=== PATIENT | male | born 1940 | race Caucasian/White ===

== ENCOUNTER 2023-11-27 10:54 | Emergency (ER) | payer MEDICARE, SELFPAY ==
[2023-11-27] VITALS (9 sets, daily range): BP systolic 120–130; BP diastolic 61–67; PULSE 74; RESP 16; TEMP 36.2; O2SAT 96–99
--- NOTE | ~2023-11-27 | XR_ITS ---
EXAMINATION: XR ribs RT 2V w CXR 2V DATE: 11/27/2023 12:00 INDICATION: Right chest pain. Fall. TECHNIQUE: Frontal and lateral views of the chest and 2 views on 3 radiographs of the right ribs were obtained. COMPARISON: None. FINDINGS: CHEST TWO VIEWS: Calcified pulmonary nodules and calcified right hilar lymph nodes are consistent wit h old granulomatous disease. No pleural effusion or pneumothorax. The heart size is normal. There are changes of posterior fusion procedure in lumbar spine. RIGHT RIBS: There is no rib fracture. IMPRESSION: 1. No rib fracture. Reviewed, dictated and finalized at location A. IMPRESSION: 1. No rib fracture.
--- NOTE | 2023-11-27 12:34 | ED.GENADULT ---
HPI - General Adult General Chief complaint: Fall Stated complaint: pain to right chest, flank, and back Time Seen by Provider: 11/27/23 11:31 History of Present Illness HPI narrative: Patient is an 83-year-old male who presents ER with right-sided rib pain. Mid axillary line. Had a fall earlier this week landing on his side. Caregiver states he has had pain since then and it was worse today. He has had occasional cough no one make sure does not pneumonia. No fevers or chills. Patient is also develop new dental pain at tooth number 27. No facial swelling. Patient cannot provide history due to dementia. Pain does improve with tramadol. Related Data Allergies Allergy/AdvReac Type Severity Reaction Status Date / Time Penicillins Allergy Unknown Verified 11/27/23 13:14 Review of Systems Review of Systems: ROS unobtainable: Yes unobtainable due to mental status PMFSH Past Medical History Medical History (Updated 11/27/23 @ 13:26 by Kal Parkinson MD) Dementia Social History Social History (Updated 11/27/23 @ 13:26 by Kal Parkinson MD) Social History: Exam Narrative: GENERAL: Well-appearing, well-nourished, and in no acute distress. HEAD: Normocephalic, atraumatic. ENT: Mucous membranes moist. tender at the base of tooth number 27 but no facial swelling or fluctuant abscess. CHEST: Clear to auscultation. No respiratory distress. mild tenderness right lateral chest wall midaxillary line HEART: Regular rate and rhythm. Normal peripheral pulses. ABDOMEN: Soft, nontender, nondistended. EXTREMITIES: Normal range of motion. No edema. SKIN: Warm, dry, no rash. NEURO: Alert and oriented x1. Course Course Emergency Course: Antibiotics for dental pain. Discussed imaging results with POA. Discharge home. Vital Signs Vital signs: Vital Signs Temperature 97.1 F L 11/27/23 10:54 Pulse Rate 74 11/27/23 10:54 Respiratory Rate 16 11/27/23 10:54 Blood Pressure 129/61 11/27/23 10:54 Pulse Oximetry 98 11/27/23 10:54 Temperature 97.1 F L 11/27/23 10:54 Pulse Rate 74 11/27/23 10:54 Respiratory Rate 16 11/27/23 10:54 Blood Pressure 129/61 11/27/23 10:54 Pulse Oximetry 98 11/27/23 10:54 Medical Decision Making Vital Signs Vital Signs: Vital Signs Temperature 97.1 F L 11/27/23 10:54 Pulse Rate 74 11/27/23 10:54 Respiratory Rate 16 11/27/23 10:54 Blood Pressure 129/61 11/27/23 10:54 Pulse Oximetry 98 11/27/23 10:54 Temperature 97.1 F L 11/27/23 10:54 Pulse Rate 74 11/27/23 10:54 Respiratory Rate 16 11/27/23 10:54 Blood Pressure 129/61 11/27/23 10:54 Pulse Oximetry 98 11/27/23 10:54 Discharge Plan Discharge Clinical Impression: Chest wall pain, Pain, dental Patient Disposition: Home, Self-Care Condition: Stable Instructions: Antibiotic Form, Toothache (ED) Additional Instructions: It is felt you have musculoskeletal pain from your fall. You do seem to have new tenderness related to possible dental infection and will be started on antibiotics. Return the ER if you have fever over 100.4? F, you cannot breathe, you cannot swallow, or you have additional concerns. Prescriptions: New clindamycin HCl 150 mg capsule 450 mg PO TID 10 Days Qty: 90 0RF Follow-up/Referrals: UNKNOWN,DOCTOR [Primary Care Provider] - 1 Week
== END 2023-11-27 13:45 | disposition home or self-care (01) ==
PROVIDERS: Emergency Provider Emergency Medicine
DX: R07.89 Other chest pain (principal); K08.89 Other specified disorders of teeth and supporting structures; F03.90 Unspecified dementia, unspecified severity, without behavioral disturbance, psychotic disturbance, mood disturbance, and anxiety
CPT/HCPCS: 71046; 71100; 99283

== ENCOUNTER 2024-05-25 20:07 | Emergency (ER) | payer MEDICARE, SELFPAY ==
--- NOTE | ~2024-05-25 | CT_ITS ---
EXAMINATION: CT cervical spine wo con DATE: 05/26/2024 00:37 INDICATION: Neck pain. Fall. TECHNIQUE: Computed tomography (CT) of the cervical spine was performed without intravenous contrast. Automated exposure control and iterative reconstruction technique were employed. The dose-length pro duct was 412.36 mGy-cm. COMPARISON: None FINDINGS: There is hypolordosis of cervical spine. There is mild chronic anterior wedging of T1 verte bral body. There is severely decreased disc height at C3-C4, moderately decreased disc height at C4-C 5, and severely decreased disc height at C5-C6 and C6-C7. The following disc levels are specifically discussed: C2-C3: There is severe right uncovertebral joint osteoarthritis. There is severe right and moderate l eft facet joint osteoarthritis. There is mild right neural foraminal stenosis. There is mild central canal stenosis. C3-C4: There is severe bilateral uncovertebral joint osteoarthritis. There is severe right and mild l eft facet joint osteoarthritis. There is mild bilateral neural foraminal stenosis. There is mild cent ral canal stenosis. C4-C5: There is mild right and moderate left uncovertebral joint osteoarthritis. There is severe righ t and mild left facet joint osteoarthritis. There is mild bilateral neural foraminal stenosis. There is mild central canal stenosis. C5-C6: There is severe bilateral uncovertebral joint osteoarthritis. There is severe bilateral facet joint osteoarthritis. There is moderate right and mild left neural foraminal stenosis. There is mild central canal stenosis. C6-C7: There is severe bilateral uncovertebral joint osteoarthritis. There is severe right and modera te left facet joint osteoarthritis. There is mild bilateral neural foraminal stenosis. There is mild central canal stenosis. C7-T1: There is no uncovertebral joint osteoarthritis. There is moderate bilateral facet joint osteoa rthritis. There is no neural foraminal stenosis. There is no central canal stenosis. IMPRESSION: 1. No fracture. 2. Severe cervical spondylosis. Reviewed, dictated and finalized at location A. ND GRADE TEACHER
--- NOTE | ~2024-05-25 | CT_ITS ---
EXAMINATION: CT brain wo con DATE: 05/26/2024 00:37 INDICATION: Head injury. TECHNIQUE: Computed tomography (CT) of the head was performed without intravenous contrast. The mA wa s adjusted according to patient size. Iterative reconstruction technique was employed. The dose-lengt h product was 681.00 mGy-cm. COMPARISON: None FINDINGS: There are scattered areas of low attenuation in the cerebral white matter. There are old la cunar infarcts in the bilateral basal ganglia. There is no intracranial hemorrhage, acute infarction, or abnormal intracranial mass lesion. The ventricles are normal in size. There are likely changes of ocular lens replacement surgeries. There is mild mucosal thickening in the paranasal sinuses. The ma stoid air cells are normal. IMPRESSION: 1. Old lacunar infarcts in the bilateral basal ganglia. 2. Extensive nonspecific cerebral white matter disease, which likely represents chronic small vessel ischemic disease. Reviewed, dictated and finalized at location A. [employer] PRODUCTION TEAM MEMBER
[2024-05-25 20:11] VITALS: BP 152/67; PULSE 65; RESP 15; TEMP 35.9; O2SAT 100
[2024-05-25 22:35] VITALS: BP 120/74; O2SAT 95
[2024-05-25 22:36] VITALS: O2SAT 98
[2024-05-25 22:38] VITALS: BP 120/74; PULSE 66; RESP 16; O2SAT 100
--- NOTE | 2024-05-26 00:54 | ED_ITS ---
HPI - General Adult General Chief complaint: Fall Stated complaint: fall Time Seen by Provider: 05/25/24 22:49 History of Present Illness HPI narrative: patient is a 83-year-old gentleman presents emergency department with chief complaint of fall. Patient had a fall out of bed at home patient landed on his front side of his body the patient rib caregiver reports that she heard a large thud the patient reports that he has no complaint right now is not having any pain anywhere Related Data Allergies Allergy/AdvReac Type Severity Reaction Status Date / Time clopidogrel [From Plavix] Allergy Unknown Verified 05/25/24 22:36 lisinopril Allergy Unknown Verified 05/25/24 22:36 Penicillins Allergy Unknown Verified 05/25/24 22:36 Sulfa (Sulfonamide Allergy Unknown Verified 05/25/24 22:36 Antibiotics) Review of Systems Review of Systems: A 10 system review of systems was completed on the patient and is negative exc ept for what is stated in the HPI. Nursing and ancillary documentation was reviewed. PMFSH Past Medical History Medical History Dementia Social History Social History Social History: Exam Narrative: GENERAL: Well-appearing, well-nourished, and in no acute distress. HEAD: Normocephalic, atraumatic. EYES: PERRLA and EOMI. ENT: Nares clear, no rhinorrhea or epistaxis. Mucous membranes moist. NECK: Supple. CHEST: Clear to auscultation. No respiratory distress. HEART: Regular rate and rhythm. No murmur heard. Normal peripheral pulses. ABDOMEN: Soft, nontender, nondistended, normal active bowel sounds. EXTREMITIES: Normal range of motion. No edema. SKIN: Warm, dry, no rash. NEURO: No focal deficits. Alert and oriented x2. PSYCH: Normal mood and affect. Course Vital Signs Vital signs: Vital Signs Temperature 35.9 C L 05/25/24 20:11 Pulse Rate 65 05/25/24 20:11 Respiratory Rate 15 05/25/24 20:11 Blood Pressure 152/67 H 05/25/24 20:11 Pulse Oximetry 100 05/25/24 20:11 Oxygen Delivery Room Air 05/25/24 20:11 Temperature 35.9 C L 05/25/24 20:11 Pulse Rate 66 05/25/24 22:38 Respiratory Rate 16 05/25/24 22:38 Blood Pressure 120/74 05/25/24 22:38 Pulse Oximetry 100 05/25/24 22:38 Oxygen Delivery Room Air 05/25/24 20:11 Medical Decision Making MDM Narrative Medical decision making narrative: differential diagnosis includes head injury, cervical spine fracture, CT head CT C-spine were obtained on the patient both were negative patient is currently at his baseline neurological status. Vital Signs Vital Signs: Vital Signs Temperature 35.9 C L 05/25/24 20:11 Pulse Rate 65 05/25/24 20:11 Respiratory Rate 15 05/25/24 20:11 Blood Pressure 152/67 H 05/25/24 20:11 Pulse Oximetry 100 05/25/24 20:11 Oxygen Delivery Room Air 05/25/24 20:11 Temperature 35.9 C L 05/25/24 20:11 Pulse Rate 66 05/25/24 22:38 Respiratory Rate 16 05/25/24 22:38 Blood Pressure 120/74 05/25/24 22:38 Pulse Oximetry 100 05/25/24 22:38 Oxygen Delivery Room Air 05/25/24 20:11 Discharge Plan Discharge Clinical Impression: Fall from ground level, Head injury Patient Disposition: Home, Self-Care Condition: Stable Instructions: Antibiotic Form, Fall Prevention for Older Adults (ED), Head Injury (ED), Fall Prevention (ED) Prescriptions: No Action clindamycin HCl 150 mg capsule 450 mg PO TID 10 Days Qty: 90 0RF Follow-up/Referrals: UNKNOWN,DOCTOR [Primary Care Provider] - Time of Disposition: 01:24
== END 2024-05-26 01:46 | disposition home or self-care (01) ==
PROVIDERS: Emergency Provider Emergency Medicine
DX: S09.90XA Unspecified injury of head, initial encounter (principal); F03.90 Unspecified dementia, unspecified severity, without behavioral disturbance, psychotic disturbance, mood disturbance, and anxiety; W06.XXXA Fall from bed, initial encounter
CPT/HCPCS: 70450; 72125; 99284

== ENCOUNTER 2025-06-18 22:59 | Emergency (ER) | payer MEDICARE, SELFPAY ==
--- NOTE | ~2025-06-18 | CT_ITS ---
EXAMINATION: CT abdomen pelvis w con DATE: 06/19/2025 00:38 INDICATION: Abdominal pain. Nausea and vomiting. TECHNIQUE: Computed tomography (CT) of the abdomen and pelvis was performed with 100 mL Omnipaque 350 intravenous contrast. Automated exposure control and iterative reconstruction technique were employed. The dose-length product was 710.04 mGy-cm. COMPARISON: None. FINDINGS: The visualized portions of the lung bases demonstrate mild atelectasis and chronic lung disease. Calcified pulmonary nodules and calcified hilar lymph nodes are consistent with old granulomatous disease. The heart size is normal. There are coronary artery calcifications. No pericardial effusion. There are calcifications of the aortic valve. The liver, gallbladder, spleen, pancreas, and adrenal glands are normal. There are cysts in the kidneys measuring up to 3.2 cm on the left. There are no dilated loops of bowel. The appendix is normal. There are no pathologically enlarged lymph nodes. There is no free intraperitoneal fluid. There is severe lumbar spondylosis. There are changes of anterior and posterior fusion procedures at L4-L5. IMPRESSION: 1. No etiology for the patient's symptoms. Reviewed, dictated and finalized at location E. EQUIPMENT SERVICE TECHNICIAN
[2025-06-18 23:05] VITALS: BP 168/75; PULSE 79; RESP 21; TEMP 36.4; O2SAT 97
[2025-06-18 23:15] VITALS: BP 156/89; PULSE 80; RESP 20; O2SAT 100
[2025-06-18 23:30] VITALS: BP 137/97; PULSE 80; RESP 19; O2SAT 96
[2025-06-18 23:49] LABS: Hematocrit 41.1 % (42.0-52.0); Hemoglobin 12.8 g/dL (14.0-18.0); Immature Granulocyte Percent A 0.3 % (0-0.5); Lymphocytes Absolute Auto 1.59 K/mm3 (0.9-3.2); Mean Corpuscular HGB Conc 31.1 g/dl (32-36); Mean Corpuscular Hemoglobin 26.3 pg (26-34); Mean Corpuscular Volume 84.4 fl (80-100); Nucleated Red Blood Cells Absolute Auto 0.000 K/mm3 (0.0-0.012); Nucleated Red Blood Cells Perc 0.0 % (0.0-0.2); Platelet Count Result 367 k/mm3 (150-375); Red Blood Count 4.87 M/mm3 (4.6-6.20); White Blood Count 10.1 K/mm3 (4.5-10.0)
--- OUTSIDE RECORDS SUMMARY | 2025-06-18 23:56 | XMS_ITS ---
Care Plan - [facility] Created on: June 18, 2025 CARLIN GREENFIELD : 1940 Sex: Male Author Organization [facility] Address [address] [place] [address] Phone Care Team Providers Care Nutrition Program Instructor Name Role Phone CARMEN FIGUEROA, CORY Unavailable [phone] MARCELO FIGUEROA, ASTON Primary Care Provider Unavail able
--- OUTSIDE RECORDS SUMMARY | 2025-06-18 23:56 | XMS_ITS | Clinical Summary ---
Author Organization [facility] Address [address] [place] [address] Phone Care Team Providers Care Insurance Customer Service Specialist Name Role Phone CARMEN FIGUEROA, CORY Unavailable [phone] ASTON ROBERTSON MD Primary Care Provider Unavail able Reason for Visit and Chief Complaint The Chief Complaint is: LEFT SIDE PAIN FOR ABOUT 4 MONTHS. 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 Jimenez ROBERTSON MD Active Last Documented On 0 2:28PM ; [facility] Benign Prostatic Hypertrophy 03/25/2009 ASTON ROBERTSON MD Active Last Documented On 0 2:28PM ; [facility] Chronic Diffuse Ischemic Heart Disease 03/25/2009 ASTON ROBERTSON MD Active Last Documented On 0 2:28PM ; [facility] Diabetes Mellitus Type 2 03/25/2009 ASTON TAVAREZ MD Active Last Documented On 0 2:28PM ; [facility] Hyperlipidemia 03/25/2009 ASTON ROBERTSON MD Act kamar Last Documented On 0 2:28PM ; [facility] Essential Hypertension Benign 03/25/2009 JODEE ROBERTSON MD Active Last Documented On 0 2:28PM ; [facility] Osteoarthritis 03/25/2009 ASTON ROBERTSON MD Act kamar Last Documented On 0 2:28PM ; [facility] Plan of Treatment Will call with x-ray results. May apply heat/ice several times daily to affected area. Gentle stretching discussed. Monitor blood sugars closely while taking medrol dose pack. - Last Documented On 04/27/2021 7:46PM ; [facility] Assessments Includes: Assessments from this encounter No Assessments Recorded Medical Equipment - Implanted Devices Includes: Current Devices No Medical Equipment Recorded Medications Includes: Medications discussed during this encounter and other current Medications New / Renewed during this visit STACIE DUNCAN on 04/27/2021 Medrol 4 MG Oral Tablet Therapy Pack Provider: STACIE Medina 6 day supply: 1 each, 0 refills Diagnosis: Sprain of ribs, initial encounter use as directed Pharmacy: [address], [phone] - Last Documented On 04/27/2021 11:45AM By Stacie ANTONIO ; [facility] Current Medications (continue as prescribed) fentaNYL 12 MCG/HR TD PT72 03/25/2011 Provider: Diagnosis: Last Documented On 1 1:55PM By TRAVIS PACHECO LPN ; [facility] Effient 10 MG OR TABS 03/25/2011 Provider: Diagnosis: Last Documented On 1 1:54PM By TRAVIS PACHECO LPN ; [facility] NexIUM 40 MG OR CPDR 03/25/2011 Provider: Diagnosis: Last Documented On 1 1:53PM By TRAVIS PACHECO LPN ; [facility] glipiZIDE 5 MG OR TABS 03/25/2011 Provider: Diagnosis: Last Documented On 1 1:53PM By TRAVIS PACHECO LPN ; [facility] metFORMIN HCl 1000 MG TABS 03/25/2011 Provider: Diagnosis: Last Documented On 1 1:52PM By TRAVIS PACHECO LPN ; [facility] HYDROcodone-Acetaminophen 5-325 MG OR TABS 03/17/2011 Provider: ASTON ROBERTSON MD Diagnosis: 1-2 PO, Q4HR, PRN, Last Documented On 03/17/2011 1:23PM By ASTON ROBERTSON MD ; [facility] Zetia 10 MG OR TABS 12/18/2010 Provider: Diagnosis: Last Documented On 1 2:27PM By TRAVIS PACHECO LPN ; [facility] Crestor 20 MG OR TABS 05/14/2010 Provider: Diagnosis: Last Documented On 0 10:47AM By TRAVIS PACHECO LPN ; [facility] metFORMIN HCl 1000 MG TABS 05/14/2010 Provider: Jimenez ROBERTSON MD Diagnosis: HYPERLIPIDEMIA N EC/NOS Last Documented On 05/14/2010 11:14AM By ASTON ROBERTSON MD ; [facility] Lexapro 10 MG OR TABS 12/30/2009 Provider: JODEE ROBERTSON MD Diagnosis: Last Documented On 12/30/2009 4:14PM By ASTON ROBERTSON MD ; [facility] Lopressor 100 MG OR TABS 12/22/2009 Provider: SIABEL ROBERTSON MD Diagnosis: 2BID - TAKE TWO TABLETS BY MOUTH TWICE DAILY Last Documented On 12/22/2009 9:49AM By ASTON ROBERTSON MD ; [facility] amLODIPine Besylate 10 MG OR TABS 11/11/2009 Provide r: Diagnosis: Last Documented On 0 2:26PM By TRAVIS PACHECO LPN ; [facility] Metoprolol Tartrate 100 MG OR TABS 11/11/2009 Provid er: Diagnosis: Last Documented On 0 2:27PM By TRAVIS PACHECO LPN ; [facility] Flonase 50 MCG/ACT NA SUSP 11/07/2009 Provider: Jimenez ROBERTSON MD Diagnosis: 2 sprays each nostril QD Last Documented On 11/07/2009 10:47AM By ASTON ROBERTSON MD ; [facility] Accu-Chek Compact STRP 10/28/2009 Provider: RAMSEY ROBERTSON MD Diagnosis: Last Documented On 10/28/2009 9:23PM By ASTON ROBERTSON MD ; [facility] Lancets 28G MISC 10/28/2009 Provider: ASTON TAVAREZ MD Diagnosis: ACCU CHECK COMPACT PLUS Last Documented On 10/28/2009 9:24PM By ASTON ROBERTSON MD ; [facility] Detrol LA 4 MG OR CP24 06/17/2009 Provider: ROSALVA ROBERTSON MD Diagnosis: Last Documented On 06/17/2009 1:51PM By ASTON ROBERTSON MD ; [facility] Pantoprazole Sodium 40 MG OR TBEC 05/26/2009 Provide r: ASTON ROBERTSON MD Diagnosis: Last Documented On 05/26/2009 1:53PM By ASTON ROBERTSON MD ; [facility] Doxazosin Mesylate 8 MG OR TABS 05/26/2009 Provider: Diagnosis: Last Documented On 9 1:36PM By TRAVIS PACHECO LPN ; [facility] Medications Administered Includes: Administered Medications from this encounter No Administered Medications Recorded Vital Signs Includes: Vital Signs from this encounter Vital Name 04/27/2021 11:17A Pulse Rate-Sitting (bpm) 57 Temp-Oral (F) 97.9 Weight (lb) 236.2 Oxygen Saturation (%) 98 Last Documented: On 04/27/2021 11:17A M ; [facility] Results Includes: Results discussed during this encounter No Results Recorded For Specified Dates History of Present Illness Includes: History of Present Illness from this encounter HPI CARLIN GREENFIELD is a 80 year old male. - Allergy list reviewed - Medication reconciliation performed - Feeling fine - Not feeling tired - Not feeling poorly (malaise) - No fever - No chills - No headache - No chest pain or discomfort - No palpitations - No dyspnea - Not expressed as feeling short of breath - No cough - No nausea - No vomiting - No abdominal pain - No diarrhea - No increase in urinary frequency - No dysuria - No dizziness - No lightheadedness - No skin symptoms Carlin is a 80-year-old male patient that presented to the walk-in clinic for left rib pain that has been present for four months. He reports that he initially fell on a lawn ornament and landed on his left side. He reports that he never was evaluated for this. He saw the chiropractor several times for an adjustment. He reports pain started to posterior left rib area, but now has wrapped around and he is having pain to left anterior ribs. He has been taking OTC Tylenol/Ibuprofen for pain. He reports that he goes to [place] for primary care. Social History No Social History Recorded - Smoking Status Unknown Medical History Includes: Medical History addressed during this encounter Description Last Updated Taking OTC medications 04/27/2021 Last Documented On 1 7:46PM ; [facility] Taking OTC pain medication / fever. Marquez denton Motrin 04/27/2021 Last Documented On 1 7:46PM ; [facility] Taking OTC pain medication /fever. Using Tylenol 04/27/2021 Last Documented On 1 7:46PM ; [facility] Family History Includes: Family History addressed during this encounter No Family History Recorded Review of Systems Includes: Review of Systems from this encounter Systemic: No systemic symptoms. Head: No head symptoms. Cardiovascular: No cardiovascular symptoms. Pulmonary: No pulmonary symptoms. Gastrointestinal: No gastrointestinal symptoms. Musculoskeletal: Bone pain in the rib. Neurological: No neurological symptoms. Skin: No skin symptoms. Mental Status Includes: Mental Status from this encounter No Mental Status Recorded Functional Status Includes: Functional Status from this encounter No Functional Status Recorded Physical Exam Includes: Physical Exam from this encounter Allergies Includes: Active Allergies Substance Type Reaction Onset Date Resolved Date Statu s Sulfa Antibiotics Allergy 03/25/2009 A ctive Last Documented On 1 11:17AM ; [facility] Plavix Allergy 03/25/2009 Active Last Documented On 1 11:17AM ; [facility] Penicillins Allergy 03/25/2009 Active Last Documented On 1 11:17AM ; [facility] Encounters Encounter Provider Location Date Check-In Time Check-Out Time Diagnosis WALK IN PATIENT - ESTABLISHED PT STACIE ANTONIO-C [facility] 04/27/20 21 11:23AM 11:39AM Insurance Includes: Active Insurance Policies Plan Name Member ID Group # Subscriber Relationship Effect kamar Dates 1 - [employer]AGE [id number] CARLIN Ruelas Clinical Notes Includes: Clinical Notes from this encounter No Clinical Notes Recorded
--- OUTSIDE RECORDS SUMMARY | 2025-06-18 23:56 | XMS_ITS | Clinical Summary ---
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 Name Role Phone CARMEN FIGUEROA, CORY Unavailable [phone] ASTON ROBERTSON MD Primary Care Provider Unavail able Reason for Visit and Chief Complaint X-RAY Problems Includes: Problems addressed during this encounter and other active Problems All Visits Onset Date Resolved Date Provider Condition S tatus Depression 05/26/2009 SYLVIA AMYA PA-C Act kamar Last Documented On 1 3:45PM ; [facility] 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 Jimenez ROBERTSON MD Active Last Documented On 0 2:28PM ; [facility] Benign Prostatic Hypertrophy 03/25/2009 ASTON ROBERTSON MD Active Last Documented On 0 2:28PM ; [facility] Chronic Diffuse Ischemic Heart Disease 03/25/2009 ASTON ROBERTSON MD Active Last Documented On 0 2:28PM ; [facility] Diabetes Mellitus Type 2 03/25/2009 ASTON TAVAREZ MD Active Last Documented On 0 2:28PM ; [facility] Hyperlipidemia 03/25/2009 ASTON ROBERTSON MD Act kamar Last Documented On 0 2:28PM ; [facility] Essential Hypertension Benign 03/25/2009 JODEE ROBERTSON MD Active Last Documented On 0 2:28PM ; [facility] Osteoarthritis 03/25/2009 ASTON ROBERTSON MD Act kamar Last Documented On 0 2:28PM ; [facility] Plan of Treatment No Plan of Treatment Recorded Assessments Includes: Assessments from this encounter No Assessments Recorded Medical Equipment - Implanted Devices Includes: Current Devices No Medical Equipment Recorded Medications Includes: Medications discussed during this encounter and other current Medications Current Medications (continue as prescribed) fentaNYL 12 MCG/HR TD PT72 03/25/2011 Provider: Diagnosis: Last Documented On 1 1:55PM By TRAVIS PACHECO LPN ; [facility] Effient 10 MG OR TABS 03/25/2011 Provider: Diagnosis: Last Documented On 1 1:54PM By TRAVIS PACHECO LPN ; [facility] NexIUM 40 MG OR CPDR 03/25/2011 Provider: Diagnosis: Last Documented On 1 1:53PM By TRAVIS PACHECO LPN ; [facility] glipiZIDE 5 MG OR TABS 03/25/2011 Provider: Diagnosis: Last Documented On 1 1:53PM By TRAVIS PACHECO LPN ; [facility] metFORMIN HCl 1000 MG TABS 03/25/2011 Provider: Diagnosis: Last Documented On 1 1:52PM By TRAVIS PACHECO LPN ; [facility] HYDROcodone-Acetaminophen 5-325 MG OR TABS 03/17/2011 Provider: ASTON ROBERTSON MD Diagnosis: 1-2 PO, Q4HR, PRN, Last Documented On 03/17/2011 1:23PM By ASTON ROBERTSON MD ; [facility] Zetia 10 MG OR TABS 12/18/2010 Provider: Diagnosis: Last Documented On 1 2:27PM By TRAVIS PACHECO LPN ; [facility] Crestor 20 MG OR TABS 05/14/2010 Provider: Diagnosis: Last Documented On 0 10:47AM By TRAVIS PACHECO LPN ; [facility] metFORMIN HCl 1000 MG TABS 05/14/2010 Provider: Jimenez ROBERTSON MD Diagnosis: HYPERLIPIDEMIA N EC/NOS Last Documented On 05/14/2010 11:14AM By ASTON ROBERTSON MD ; [facility] Lexapro 10 MG OR TABS 12/30/2009 Provider: JODEE ROBERTSON MD Diagnosis: Last Documented On 12/30/2009 4:14PM By ASTON ROBERTSON MD ; [facility] Lopressor 100 MG OR TABS 12/22/2009 Provider: ISABEL ROBERTSON MD Diagnosis: 2BID - TAKE TWO TABLETS BY MOUTH TWICE DAILY Last Documented On 12/22/2009 9:49AM By ASTON ROBERTSON MD ; [facility] amLODIPine Besylate 10 MG OR TABS 11/11/2009 Provide r: Diagnosis: Last Documented On 0 2:26PM By TRAVIS PACHECO LPN ; [facility] Metoprolol Tartrate 100 MG OR TABS 11/11/2009 Provid er: Diagnosis: Last Documented On 0 2:27PM By TRAVIS PACHECO LPN ; [facility] Flonase 50 MCG/ACT NA SUSP 11/07/2009 Provider: Jimenez ROBERTSON MD Diagnosis: 2 sprays each nostril QD Last Documented On 11/07/2009 10:47AM By ASTON ROBERTSON MD ; [facility] Accu-Chek Compact STRP 10/28/2009 Provider: RAMSEY ROBERTSON MD Diagnosis: Last Documented On 10/28/2009 9:23PM By ASTON ROBERTSON MD ; [facility] Lancets 28G MISC 10/28/2009 Provider: ASTON TAVAREZ MD Diagnosis: ACCU CHECK COMPACT PLUS Last Documented On 10/28/2009 9:24PM By ASTON ROBERTSON MD ; [facility] Detrol LA 4 MG OR CP24 06/17/2009 Provider: ROSALVA ROBERTSON MD Diagnosis: Last Documented On 06/17/2009 1:51PM By ASTON ROBERTSON MD ; [facility] Pantoprazole Sodium 40 MG OR TBEC 05/26/2009 Provide r: ASTON ROBERTSON MD Diagnosis: Last Documented On 05/26/2009 1:53PM By ASTON ROBERTSON MD ; [facility] Doxazosin Mesylate 8 MG OR TABS 05/26/2009 Provider: Diagnosis: Last Documented On 9 1:36PM By TRAVIS PACHECO LPN ; [facility] Medications Administered Includes: Administered Medications from this encounter No Administered Medications Recorded Results Includes: Results discussed during this encounter No Results Recorded For Specified Dates History of Present Illness Includes: History of Present Illness from this encounter No History of Present Illness Recorded Social History No Social History Recorded - Smoking Status Unknown Medical History Includes: Medical History addressed during this encounter No Medical History Recorded Family History Includes: Family History addressed during this encounter No Family History Recorded Review of Systems Includes: Review of Systems from this encounter No Review of Systems Recorded Mental Status Includes: Mental Status from this encounter No Mental Status Recorded Functional Status Includes: Functional Status from this encounter No Functional Status Recorded Physical Exam Includes: Physical Exam from this encounter No Physical Exam Recorded Allergies Includes: Active Allergies Substance Type Reaction Onset Date Resolved Date Statu s Sulfa Antibiotics Allergy 03/25/2009 A ctive Last Documented On 1 11:17AM ; [facility] Plavix Allergy 03/25/2009 Active Last Documented On 1 11:17AM ; [facility] Penicillins Allergy 03/25/2009 Active Last Documented On 1 11:17AM ; [facility] Encounters Encounter Provider Location Date Check-In Time Check-Out Time Diagnosis X-RAY [facility] 05/26/2022 3:12PM 11:59PM Insurance Includes: Active Insurance Policies Plan Name Member ID Group # Subscriber Relationship Effect kamar Dates 1 - [employer] [id number] CARLIN Ruelas Clinical Notes Includes: Clinical Notes from this encounter No Clinical Notes Recorded
--- OUTSIDE RECORDS SUMMARY | 2025-06-18 23:56 | XMS_ITS ---
Author Organization [facility] Address [address] [place] [address] Phone Care Team Providers Care Ball Points Inspector Name Role Phone CARMEN FIGUEROA, CORY Unavailable [phone] ASTON ROBERTSON MD Primary Care Provider Unavail able Problems Includes: Active, inactive, and resolved Problems All Visits Onset Date Resolved Date Provider Condition S tatus Depression 05/26/2009 SYLVIA MAYA PA-C Act akmar Last Documented On 1 3:45PM ; [facility] 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 Jimenez ROBERTSON MD Active Last Documented On 0 2:28PM ; [facility] Benign Prostatic Hypertrophy 03/25/2009 ASTON ROBERTSON MD Active Last Documented On 0 2:28PM ; [facility] Chronic Diffuse Ischemic Heart Disease 03/25/2009 ASTON ROBERTSON MD Active Last Documented On 0 2:28PM ; [facility] Diabetes Mellitus Type 2 03/25/2009 ASTON TAVAREZ MD Active Last Documented On 0 2:28PM ; [facility] Hyperlipidemia 03/25/2009 ASTON ROBERTSON MD Act kamar Last Documented On 0 2:28PM ; [facility] Essential Hypertension Benign 03/25/2009 JODEE ROBERTSON MD Active Last Documented On 0 2:28PM ; [facility] Osteoarthritis 03/25/2009 ASTON ROBERTSON MD Act kamar Last Documented On 0 2:28PM ; [facility] Plan of Treatment Findings Encounter Date f/u with carton catcher return is any sx arise GENERAL OFFICE VISIT with MESHA KRUEGER PA-C 03/25/2011 Last Documented On 1 10:45AM ; [facility] 1. Cleared for surgery 2. Pr e-op forms completed and faxed PREOP EXAM with ASTON ROBERTSON MD 02/17/2011 Last Documented On 1 3:14PM ; [facility] Discussed diet, limit carbs to 45-60 grams/meal TID check sugars fasting and 2 hours post prandial F/U 3 months with CMP, A1c GENERAL OFFICE VISIT with SYLVIA MAYA PA-C 12/18/2010 Last Documented On 1 3:45PM ; [facility] Ordered follow-up visit 6 mo nths Check Chem 12, HgbA1c, PSA Follow up with cardio as directed 3 MONTH CHECK with ASTON ROBERTSON MD 08/13/2010 Last Documented On 1 12:42PM ; [facility] Ordered return to the clinic if condition worsens or new symptoms arise 3 MONTH CHECK with ASTON ROBERTSON MD 08/13/2010 Last Documented On 1 12:42PM ; [facility] Start Metformin Check Chem 1 2, HgbA1c in 3 months Pt. to monitor BP and HR Pt. to call Dr. Arias, Cardio, this week to give an update on his condition 6 MONTH CHECK with ASTON ROBERTSON MD 05/14/2010 Last Documented On 0 1:11PM ; [facility] Continue current meds Pt. to call his carton catcher today or tomorrow re: CP He is to go to ER if CP worsens Offered to setup recheck of sleep study. Pt. states he will think about it and let us know. Considered starting Imdur but BP too low 6 MONTH CHECK with ASTON ROBERTSON MD 11/11/2009 Last Documented On 0 5:24PM ; [facility] Ordered follow-up visit 6 mo nths Check chem 12, lipids, HgbA1c GENERAL OFFICE VISIT with ASTON ROBERTSON MD 05/26/2009 Last Documented On 9 2:01PM ; [facility] PLAN [Use for s.o.a.p. 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 [facility] Last Documented On 2 10:31AM ; [facility] Assessments Includes: Assessments for all patient encounters Findings Encounter Date Type II diabetes mellitus [Patient Encounter] wi th SYLVIA Duarte ZULMA PA-C 04/27/2011 Last Documented On 1 10:18AM ; [facility] Pre-op clearence GENERAL OFFICE VISIT with SHAY OLVERA Felicia ZIPPRICH PA-C 03/25/2011 Last Documented On 1 10:45AM ; [facility] Benign essential hypertension GENERAL OF FICE VISIT with MESHA Felicia LIPRICH PA-C 03/25/2011 Last Documented On 1 10:45AM ; [facility] Chronic diffuse ischemic hea rt disease GENERAL OFFICE VISIT with MESHA Duarte ZIPPRICH PA-C 03/25/2011 Last Documented On 1 10:45AM ; [facility] Hyperlipidemia GENERAL OFFICE VISIT with NAGASTUART Ruano Felicia ZIPPRICH PA-C 03/25/2011 Last Documented On 1 10:45AM ; [facility] Osteoarthritis GENERAL OFFICE VISIT with RUPA Ruano Felicia ZIPPRICH PA-C 03/25/2011 Last Documented On 1 10:45AM ; [facility] Type II diabetes mellitus GENERAL OFFICE VISIT with MESHA D ZIPPRICH PA-C 03/25/2011 Last Documented On 1 10:45AM ; [facility] Pre-op clearence PREOP EXAM with ASTON ROBERTSON MD 02/17/2011 Last Documented On 1 3:14PM ; [facility] Benign essential hypertension PREOP EXAM with RAMSEY ROBERTSON MD 02/17/2011 Last Documented On 1 3:14PM ; [facility] Chronic diffuse ischemic heart disease PREOP EXA M with ASTON ROBERTSON MD 02/17/2011 Last Documented On 1 3:14PM ; [facility] Hyperlipidemia PREOP EXAM with ASTON Duarte 02/17/2011 Last Documented On 1 3:14PM ; [facility] Osteoarthritis PREOP EXAM with ASTON Duarte 02/17/2011 Last Documented On 1 3:14PM ; [facility] Type II diabetes mellitus PREOP EXAM with JODEE ROBERTSON MD 02/17/2011 Last Documented On 1 3:14PM ; [facility] Benign essential hypertension GENERAL OF FICE VISIT with SYLVIA FERRARAC 12/18/2010 Last Documented On 1 3:45PM ; [facility] Benign prostatic hypertrophy GENERAL OFF ICE VISIT with SYLVIA FERRARAC 12/18/2010 Last Documented On 1 3:45PM ; [facility] Chronic diffuse ischemic hea rt disease GENERAL OFFICE VISIT with SYLVIA STAFFORD-C 12/18/2010 Last Documented On 1 3:45PM ; [facility] Depression GENERAL OFFICE VISIT with VIDYA CARTER-C 12/18/2010 Last Documented On 1 3:45PM ; [facility] Hyperlipidemia GENERAL OFFICE VISIT with VIDYA CARTER-C 12/18/2010 Last Documented On 1 3:45PM ; [facility] Obstructive sleep apnea GENERAL OFFICE VISIT wit h SYLVIA STAFFORD-C 12/18/2010 Last Documented On 1 3:45PM ; [facility] Osteoarthritis GENERAL OFFICE VISIT with VIDYA CARTER-C 12/18/2010 Last Documented On 1 3:45PM ; [facility] Type II diabetes mellitus GENERAL OFFICE VISIT w michele STAFFORD-C 12/18/2010 Last Documented On 1 3:45PM ; [facility] Benign essential hypertension 3 MONTH CHECK with ASTON ROBERTSON MD 08/13/2010 Last Documented On 1 12:42PM ; [facility] Benign prostatic hypertrophy 3 MONTH CHECK with ASTON ROBERTSON MD 08/13/2010 Last Documented On 1 12:42PM ; [facility] Chronic diffuse ischemic heart disease 3 MONTH C HECK with ASTON ROBERTSON MD 08/13/2010 Last Documented On 1 12:42PM ; [facility] Hyperlipidemia 3 MONTH CHECK with ASTON Puente MD 08/13/2010 Last Documented On 1 12:42PM ; [facility] Obstructive sleep apnea 3 MONTH CHECK with ROSALVA ROBERTSON MD 08/13/2010 Last Documented On 1 12:42PM ; [facility] Osteoarthritis 3 MONTH CHECK with ASTON Puente MD 08/13/2010 Last Documented On 1 12:42PM ; [facility] Type II diabetes mellitus 3 MONTH CHECK with ISABEL ROBERTSON MD 08/13/2010 Last Documented On 1 12:42PM ; [facility] Benign essential hypertension 6 MONTH CHECK with ASTON ROBERTSON MD 05/14/2010 Last Documented On 0 1:11PM ; [facility] Benign prostatic hypertrophy 6 MONTH CHECK with ASTON ROBERTSON MD 05/14/2010 Last Documented On 0 1:11PM ; [facility] Chronic diffuse ischemic heart disease 6 MONTH C HECK with ASTON ROBERTSON MD 05/14/2010 Last Documented On 0 1:11PM ; [facility] Hyperlipidemia 6 MONTH CHECK with ASTON Puente MD 05/14/2010 Last Documented On 0 1:11PM ; [facility] Osteoarthritis 6 MONTH CHECK with ASTON Puente MD 05/14/2010 Last Documented On 0 1:11PM ; [facility] Type II diabetes mellitus 6 MONTH CHECK with ISABEL ROBERTSON MD 05/14/2010 Last Documented On 0 1:11PM ; [facility] Benign essential hypertension 6 MONTH CHECK with ASTON ROBERTSON MD 11/11/2009 Last Documented On 0 5:24PM ; [facility] Benign prostatic hypertrophy 6 MONTH CHECK with ASTON ROBERTSON MD 11/11/2009 Last Documented On 0 5:24PM ; [facility] Chest pain 6 MONTH CHECK with ASTON Puente MD 11/11/2009 Last Documented On 0 5:24PM ; [facility] Chronic diffuse ischemic heart disease 6 MONTH C HECK with ASTON ROBERTSON MD 11/11/2009 Last Documented On 0 5:24PM ; [facility] Hyperlipidemia 6 MONTH CHECK with ASTON Puente MD 11/11/2009 Last Documented On 0 5:24PM ; [facility] Obstructive sleep apnea 6 MONTH CHECK with ROSALVA ROBERTSON MD 11/11/2009 Last Documented On 0 5:24PM ; [facility] Osteoarthritis 6 MONTH CHECK with ASTON Puente MD 11/11/2009 Last Documented On 0 5:24PM ; [facility] Type II diabetes mellitus 6 MONTH CHECK with ISABEL ROBERTSON MD 11/11/2009 Last Documented On 0 5:24PM ; [facility] Benign essential hypertension GENERAL OFFICE VIS IT with ASTON ROBERTSON MD 05/26/2009 Last Documented On 9 2:01PM ; [facility] Chronic diffuse ischemic heart disease G ENERAL OFFICE VISIT with ASTON ROBERTSON MD 05/26/2009 Last Documented On 9 2:01PM ; [facility] GERD GENERAL OFFICE VISIT with JODEE ROBERTSON MD 05/26/2009 Last Documented On 9 2:01PM ; [facility] Hyperlipidemia GENERAL OFFICE VISIT with JODEE ROBERTSON MD 05/26/2009 Last Documented On 9 2:01PM ; [facility] Obstructive sleep apnea GENERAL OFFICE VISIT kasandra ROBERTSON MD 05/26/2009 Last Documented On 9 2:01PM ; [facility] Type II diabetes mellitus GENERAL OFFICE VISIT w michele ROBERTSON MD 05/26/2009 Last Documented On 9 2:01PM ; [facility] Medical Equipment - Implanted Devices Includes: Current and historical Devices No Medical Equipment Recorded Medications Includes: Current and historical Medications Current Medications (continue as prescribed) fentaNYL 12 MCG/HR TD PT72 03/25/2011 Provider: Diagnosis: Last Documented On 1 1:55PM By TRAVIS PACHECO LPN ; [facility] Effient 10 MG OR TABS 03/25/2011 Provider: Diagnosis: Last Documented On 1 1:54PM By TRAVIS PACHECO LPN ; [facility] NexIUM 40 MG OR CPDR 03/25/2011 Provider: Diagnosis: Last Documented On 1 1:53PM By TRAVIS PACHECO LPN ; [facility] glipiZIDE 5 MG OR TABS 03/25/2011 Provider: Diagnosis: Last Documented On 1 1:53PM By TRAVIS PACHECO LPN ; [facility] metFORMIN HCl 1000 MG TABS 03/25/2011 Provider: Diagnosis: Last Documented On 1 1:52PM By TRAVIS PACHECO LPN ; [facility] HYDROcodone-Acetaminophen 5-325 MG OR TABS 03/17/2011 Provider: ASTON ROBERTSON MD Diagnosis: 1-2 PO, Q4HR, PRN, Last Documented On 03/17/2011 1:23PM By ASTON ROBERTSON MD ; [facility] Zetia 10 MG OR TABS 12/18/2010 Provider: Diagnosis: Last Documented On 1 2:27PM By TRAVIS PACHECO LPN ; [facility] Crestor 20 MG OR TABS 05/14/2010 Provider: Diagnosis: Last Documented On 0 10:47AM By TRAVIS PACHECO LPN ; [facility] metFORMIN HCl 1000 MG TABS 05/14/2010 Provider: Jimenez ROBERTSON MD Diagnosis: HYPERLIPIDEMIA N EC/NOS Last Documented On 05/14/2010 11:14AM By ASTON ROBERTSON MD ; [facility] Lexapro 10 MG OR TABS 12/30/2009 Provider: JODEE ROBERTSON MD Diagnosis: Last Documented On 12/30/2009 4:14PM By ASTON ROBERTSON MD ; [facility] Lopressor 100 MG OR TABS 12/22/2009 Provider: ISABEL ROBERTSON MD Diagnosis: 2BID - TAKE TWO TABLETS BY MOUTH TWICE DAILY Last Documented On 12/22/2009 9:49AM By ASTON ROBERTSON MD ; [facility] amLODIPine Besylate 10 MG OR TABS 11/11/2009 Provide r: Diagnosis: Last Documented On 0 2:26PM By TRAVIS PACHECO LPN ; [facility] Metoprolol Tartrate 100 MG OR TABS 11/11/2009 Provid er: Diagnosis: Last Documented On 0 2:27PM By TRAVIS PACHECO LPN ; [facility] Flonase 50 MCG/ACT NA SUSP 11/07/2009 Provider: Jimenez ROBERTSON MD Diagnosis: 2 sprays each nostril QD Last Documented On 11/07/2009 10:47AM By ASTON ROBERTSON MD ; [facility] Accu-Chek Compact STRP 10/28/2009 Provider: RAMSEY ROBERTSON MD Diagnosis: Last Documented On 10/28/2009 9:23PM By ASTON ROBERTSON MD ; [facility] Lancets 28G MISC 10/28/2009 Provider: ASTON TAVAREZ MD Diagnosis: ACCU CHECK COMPACT PLUS Last Documented On 10/28/2009 9:24PM By ASTON ROBERTSON MD ; [facility] Detrol LA 4 MG OR CP24 06/17/2009 Provider: ROSALVA ROBERTSON MD Diagnosis: Last Documented On 06/17/2009 1:51PM By ASTON ROBERTSON MD ; [facility] Pantoprazole Sodium 40 MG OR TBEC 05/26/2009 Provide r: ASTON ROBERTOSN MD Diagnosis: Last Documented On 05/26/2009 1:53PM By ASTON ROBERTSON MD ; [facility] Doxazosin Mesylate 8 MG OR TABS 05/26/2009 Provider: Diagnosis: Last Documented On 9 1:36PM By TRAVIS PACHECO LPN ; [facility] Past Medications on file Medrol 4 MG Oral Tablet Therapy Pack 04/27/2021 - 05/03/2021 Provider: ISABELLA DUNCAN Diagnosis: Sprain of ribs, initial encounter use as directed Last Documented On 04/27/2021 11:45AM By Isabella ANTONIO ; [facility] amLODIPine Besylate 10 MG OR TABS 05/06/2011 - 04/30/2012 Provider: SYLVIA MAYA PA-C Diagnosis: Last Documented On 1 4:02PM By SYLVIA MAYA PA-C ; [facility] hydroCHLOROthiazide 25 MG TABS 05/06/2011 - 04/30/2012 Provider: SYLVIA MAYA PA-C Diagnosis: 1AM - TAKE ONE TABLET BY MOUTH IN THE MORNING Last Documented On 1 4:03PM By SYLVIA MAYA PA-C ; [facility] glipiZIDE 5 MG OR TABS 05/06/2011 - 04/30/2012 Provide r: SYLVIA MAYA PA-C Diagnosis: Last Documented On 1 4:03PM By SYLVIA MAYA PA-C ; [facility] Metoprolol Tartrate 25 MG OR TABS 05/06/2011 - 04/30/2012 Provider: SYLVIA MAYA PA-C Diagnosis: BENIGN HYPERTENS ION TAKE ONE TABLET BY MOUTH TWICE DAILY Last Documented On 1 4:05PM By SYLVIA MAYA PA-C ; [facility] Metoprolol Tartrate 50 MG OR TABS 05/06/2011 - 04/30/2012 Provider: SYLVIA MAYA PA-C Diagnosis: BENIGN HYPERTENS ION Last Documented On 1 4:04PM By SYLVIA MAYA PA-C ; [facility] NexIUM 40 MG OR CPDR 05/06/2011 - 04/30/2012 Provider: SYLVIA MAYA PA-C Diagnosis: Last Documented On 1 4:04PM By SYLVIA MAYA PA-C ; [facility] Losartan Potassium 25 MG OR TABS 05/06/2011 - 04/30/2012 Provider: SYLVIA MAYA PA-C Diagnosis: 90 DAY SUPPLY GOING TO [place] Last Documented On 1 4:04PM By SYLVIA MAYA PA-C ; [facility] Zetia 10 MG OR TABS 05/06/2011 - 04/30/2012 Provider: SYLVIA MAYA PA-C Diagnosis: Last Documented On 1 4:03PM By SYLVIA MAYA PA-C ; [facility] metFORMIN HCl 1000 MG TABS 05/06/2011 - 04/30/2012 Pro vider: SYLVIA MAYA PA-C Diagnosis: Last Documented On 1 4:03PM By SYLVIA MAYA PA-C ; [facility] Venlafaxine HCl 75 MG OR TABS 05/06/2011 - 04/30/2012 Provider: SYLVIA MAYA PA-C Diagnosis: Last Documented On 1 4:03PM By SYLVIA MAYA PA-C ; [facility] glipiZIDE 5 MG OR TABS 04/28/2011 - 05/06/2011 Provide r: ASTON ROBERTSON MD Diagnosis: Last Documented On 1 4:03PM By SYLVIA MAYA PA-C ; [facility] Metoprolol Tartrate 25 MG OR TABS 04/26/2011 - 05/06/2011 Provider: MESHA KRUEGER PA-C Diagnosis: BENIGN HYPERTENS ION TAKE ONE TABLET BY MOUTH TWICE DAILY Last Documented On 1 4:05PM By SYLVIA MAYA PA-C ; [facility] Metoprolol Tartrate 50 MG OR TABS 03/25/2011 - 05/06/2011 Provider: MESHA KRUEGER PA-C Diagnosis: BENIGN HYPERTENS ION Last Documented On 1 4:04PM By SYLVIA MAYA PA-C ; [facility] Metoprolol Tartrate 25 MG OR TABS 03/25/2011 - 04/26/2011 Provider: MESHA KRUEGER PA-C Diagnosis: BENIGN HYPERTENS ION Last Documented On 1 9:06AM By MESHA KRUEGER PA-C ; [facility] Glucotrol XL 5 MG OR TB24 12/18/2010 - 12/13/2011 Prov ider: SYLVIA MAYA PA-C Diagnosis: Last Documented On 1 3:45PM By SYLVIA MAYA PA-C ; [facility] hydroCHLOROthiazide 25 MG TABS 12/08/2010 - 05/06/2011 Provider: SYLVIA MAYA PA-C Diagnosis: 1AM - TAKE ONE TABLET BY MOUTH IN THE MORNING Last Documented On 1 4:03PM By SYLVIA MAYA PA-C ; [facility] Venlafaxine HCl 75 MG OR TABS 01/01/2010 - 05/06/2011 Provider: ASOTN ROBERTSON MD Diagnosis: Last Documented On 1 4:03PM By SYLVIA MAYA PA-C ; [facility] hydroCHLOROthiazide 25 MG TABS 12/01/2009 - 12/08/2010 Provider: ASTON ROBERTSON MD Diagnosis: 1AM - TAKE ONE TABLET BY MOUTH IN THE MORNING Last Documented On 1 8:21AM By SYLVIA MAYA PA-C ; [facility] Protonix 40 MG OR TBEC 11/11/2009 - 11/11/2009 Provide r: Diagnosis: Last Documented On 11/11/2009 3:04PM By ASTON ROBERTSON MD ; [facility] Crestor 10 MG OR TABS 11/11/2009 - 06/26/2010 Provider : Diagnosis: Last Documented On 06/26/2010 1:00PM By ASTON ROBERTSON MD ; [facility] Lexapro 10 MG OR TABS 06/16/2009 - 12/30/2009 Provider : ASTON ROBERTSON MD Diagnosis: Last Documented On 12/30/2009 4:13PM By ASTON ROBERTSON MD ; [facility] Simvastatin 40 MG OR TABS 05/26/2009 - 11/11/2009 Prov ider: Diagnosis: Last Documented On 11/11/2009 3:04PM By ASTON ROBERTSON MD ; [facility] hydroCHLOROthiazide 25 MG TABS 05/26/2009 - 06/26/2010 Provider: Diagnosis: Last Documented On 06/26/2010 1:00PM By ASTON ROBERTSON MD ; [facility] Lexapro 10 MG OR TABS 05/26/2009 - 11/11/2009 Provider : Diagnosis: Last Documented On 11/11/2009 3:04PM By ASTON ROBERTSON MD ; [facility] Detrol LA 4 MG OR CP24 05/26/2009 - 11/11/2009 Provide r: Diagnosis: Last Documented On 11/11/2009 3:05PM By ASTON ROBERTSON MD ; [facility] amLODIPine Besylate 5 MG OR TABS 05/26/2009 - 11/12/19 10 Provider: Diagnosis: Last Documented On 11/11/2009 3:04PM By ASTON ROBERTSON MD ; [facility] raNITIdine HCl 150 MG OR TABS 05/26/2009 - 11/11/2009 Provider: Diagnosis: Last Documented On 11/11/2009 3:04PM By ASTON ROBERTSON MD ; [facility] Lopressor 100 MG OR TABS 05/26/2009 - 06/25/2009 Provi valerio: Diagnosis: Last Documented On 1:33PM By TRAVIS PACHECO LPN ; [facility] Cipro 500 MG OR TABS 05/08/2009 - 05/18/2009 Provider: LUCRECIA LOVELL PA-C Diagnosis: 1 BID X 10 DAYS Last Documented On 05/08/2009 10:41AM By LUCRECIA LOVELL ; [facility] Lisinopril 10 MG OR TABS 03/18/2009 - 03/13/2010 Provi valerio: Diagnosis: Last Documented On 03/25/2009 11:24AM By SUSIE ZEPEDA ; [facility] Pindolol 5 MG OR TABS 01/06/2009 - 07/05/2009 Provider : Diagnosis: Last Documented On 03/25/2009 11:24AM By SUSIE ZEPEDA ; [facility] raNITIdine HCl 150 MG OR TABS 12/23/2008 - 12/18/2009 Provider: Diagnosis: Last Documented On 03/25/2009 11:24AM By SUSIE ZEPEDA ; [facility] Medications Administered Includes: Administered Medications in patient's chart No Administered Medications Recorded Results Includes: Results from 06/18/2024 through 06/18/2025 No Results Recorded For Specified Dates History of Present Illness History of Present Illness not supported for this document type No History of Present Illness Recorded Social History Description Last Updated Social history unchanged 03/25/2011 Last Documented On 1 10:45AM ; [facility] Non-smoker Quit 1993 03/25/2011 Last Documented On 1 10:45AM ; [facility] Quit smoking 03/25/2011 Last Documented On 1 10:45AM ; [facility] Not smoking 05/14/2010 Last Documented On 0 1:11PM ; [facility] A previous history of smoking 03/25/2009 Last Documented On 9 3:13PM ; [facility] Currently 03/25/2009 Last Documented On 9 3:13PM ; [facility] No consumption of alcohol 03/25/2009 Last Documented On 9 3:13PM ; [facility] Not using drugs 03/25/2009 Last Documented On 9 3:13PM ; [facility] Smoking Status Unknown Procedures and Surgical History Surgical History Last Updated History of Primary Knee Arthroplasty Last Documented On 9 3:13PM ; [facility] Medical History Includes: Medical History in patient's chart Description Last Updated Taking OTC medications 04/27/2021 Last Documented On 1 7:46PM ; [facility] Taking OTC pain medication / fever. Marquez Anguiano 04/27/2021 Last Documented On 1 7:46PM ; [facility] No recent change in medical history 03/11 Last Documented On 1 10:45AM ; [facility] A home blood sugar check was performed c inocente blood sugar BID 03/25/2011 Last Documented On 1 10:45AM ; [facility] Pt gets blood pressure checked at other facility 03/25/2011 Last Documented On 1 10:45AM ; [facility] History of coronary artery disease 05/14 Last Documented On 0 1:11PM ; [facility] History of essential hypertension 2009 Last Documented On 0 1:11PM ; [facility] History of hyperlipidemia 05/14/2010 Last Documented On 0 1:11PM ; [facility] History of type II diabetes mellitus 10/2009 Last Documented On 0 1:11PM ; [facility] A colonoscopy was performed 2005 Dr. bimal juan 05/26/2009 Last Documented On 9 2:01PM ; [facility] Coronary Artery Disease 05/26/2009 Last Documented On 9 2:01PM ; [facility] Diabetes 05/26/2009 Last Documented On 9 2:01PM ; [facility] GERD Had EGD [place] [address] Cm 05/26/2009 Last Documented On 9 2:01PM ; [facility] Hyperlipidemia 05/26/2009 Last Documented On 9 2:01PM ; [facility] Hypertension 05/26/2009 Last Documented On 9 2:01PM ; [facility] The PSA was checked 04/[address] Suarez 05/26/2009 Last Documented On 9 2:01PM ; [facility] Surgery SPINAL FUSION L4-L5 03/25/2009 Last Documented On 9 3:13PM ; [facility] History of arthritis 03/25/2009 Last Documented On 9 3:13PM ; [facility] History of hypertension 03/25/2009 Last Documented On 9 3:13PM ; [facility] Reported cardiovascular symptoms 009 Last Documented On 9 3:13PM ; [facility] Family History Includes: Family History in patient's chart Description Last Updated Family history unchanged 03/25/2011 Last Documented On 1 10:45AM ; [facility] Father CARDIOVASCULAR 9 Last Documented On 9 3:13PM ; [facility] Mother HEART TROUBLE, DIABETES 03/25/2009 Last Documented On 9 3:13PM ; [facility] Review of Systems Review of Systems not supported for this document type No Review of Systems Recorded Mental Status No Mental Status Recorded Functional Status No Functional Status Recorded Physical Exam Physical Exam not supported for this document type No Physical Exam Recorded Allergies Includes: Active, inactive, and resolved Allergies Substance Type Reaction Onset Date Resolved Date Statu s Sulfa Antibiotics Allergy 03/25/2009 A ctive Last Documented On 1 11:17AM ; [facility] Plavix Allergy 03/25/2009 Active Last Documented On 1 11:17AM ; [facility] Penicillins Allergy 03/25/2009 Active Last Documented On 1 11:17AM ; [facility] Insurance Includes: Active Insurance Policies Plan Name Member ID Group # Subscriber Relationship Effect kamar Dates 1 - [employer]VANTAGE [id number] CARLIN Ruelas Clinical Notes Includes: Signed Clinical Notes starting from 07/30/2022 No Clinical Notes Recorded
--- OUTSIDE RECORDS SUMMARY | 2025-06-18 23:56 | XMS_ITS | Clinical Summary ---
Author Organization [facility] Address [address] [place] [address] Phone Care Team Providers [facility] Name Role Phone CARMEN FIGUEROA, CORY Unavailable [phone] ASTON ROBERTSON MD Primary Care Provider Unavail able Reason for Visit and Chief Complaint [Patient Encounter] Problems Includes: Problems addressed during this encounter and other active Problems Current Visit Onset Date Resolved Date Provider Conditio n Status Diabetes Mellitus Type 2 03/25/2009 ASTON TAVAREZ MD Active Last Documented On 0 2:28PM ; [facility] Past Visits Onset Date Resolved Date Provider Condition Status Depression 05/26/2009 SYLVIA MAYA PA-C Act kamar Last Documented On 1 3:45PM ; [facility] 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 Jimenez ROBERTSON MD Active Last Documented On 0 2:28PM ; [facility] Benign Prostatic Hypertrophy 03/25/2009 ASTON ROBERTSON MD Active Last Documented On 0 2:28PM ; [facility] Chronic Diffuse Ischemic Heart Disease 03/25/2009 ASTON ROBERTSON MD Active Last Documented On 0 2:28PM ; [facility] Hyperlipidemia 03/25/2009 ASTON ROBERTSON MD Act kamar Last Documented On 0 2:28PM ; [facility] Essential Hypertension Benign 03/25/2009 JODEE ROBERTSON MD Active Last Documented On 0 2:28PM ; [facility] Osteoarthritis 03/25/2009 ASTON ROBERTSON MD Act kamar Last Documented On 0 2:28PM ; [facility] Plan of Treatment - DIABETES MELLITUS TYPE II - Last Documented On 04/27/2011 10:18AM ; [facility] Referral: Pusher Runner - Last Documented On 04/27/2011 10:18AM ; [facility] Referrals To Diagnosis Pusher Runner DMII WO CMP NT [facility] Last Documented On 2 10:31AM ; [facility] Assessments Includes: Assessments from this encounter Findings - Type II diabetes mellitus - Last Documented On 04/27/2011 10:18AM ; [facility] Medical Equipment - Implanted Devices Includes: Current Devices No Medical Equipment Recorded Medications Includes: Medications discussed during this encounter and other current Medications Current Medications (continue as prescribed) fentaNYL 12 MCG/HR TD PT72 03/25/2011 Provider: Diagnosis: Last Documented On 1 1:55PM By TRAVIS PACHECO LPN ; [facility] Effient 10 MG OR TABS 03/25/2011 Provider: Diagnosis: Last Documented On 1 1:54PM By TRAVIS PACHECO LPN ; [facility] NexIUM 40 MG OR CPDR 03/25/2011 Provider: Diagnosis: Last Documented On 1 1:53PM By TRAVIS PACHECO LPN ; [facility] glipiZIDE 5 MG OR TABS 03/25/2011 Provider: Diagnosis: Last Documented On 1 1:53PM By TRAVIS PACHECO LPN ; [facility] metFORMIN HCl 1000 MG TABS 03/25/2011 Provider: Diagnosis: Last Documented On 1 1:52PM By TRAVIS PACHECO LPN ; [facility] HYDROcodone-Acetaminophen 5-325 MG OR TABS 03/17/2011 Provider: ASTON ROBERTSON MD Diagnosis: 1-2 PO, Q4HR, PRN, Last Documented On 03/17/2011 1:23PM By ASTON ROBERTSON MD ; [facility] Zetia 10 MG OR TABS 12/18/2010 Provider: Diagnosis: Last Documented On 1 2:27PM By TRAVIS PACHECO LPN ; [facility] Crestor 20 MG OR TABS 05/14/2010 Provider: Diagnosis: Last Documented On 0 10:47AM By TRAVIS PACHECO LPN ; [facility] metFORMIN HCl 1000 MG TABS 05/14/2010 Provider: Jimenez ROBERTSON MD Diagnosis: HYPERLIPIDEMIA N EC/NOS Last Documented On 05/14/2010 11:14AM By ASTON ROBERTSON MD ; [facility] Lexapro 10 MG OR TABS 12/30/2009 Provider: JODEE ROBERTSON MD Diagnosis: Last Documented On 12/30/2009 4:14PM By ASTON ROBERTSON MD ; [facility] Lopressor 100 MG OR TABS 12/22/2009 Provider: ISABEL ROBERTSON MD Diagnosis: 2BID - TAKE TWO TABLETS BY MOUTH TWICE DAILY Last Documented On 12/22/2009 9:49AM By ASTON ROBERTSON MD ; [facility] amLODIPine Besylate 10 MG OR TABS 11/11/2009 Provide r: Diagnosis: Last Documented On 0 2:26PM By TRAVIS PACHECO LPN ; [facility] Metoprolol Tartrate 100 MG OR TABS 11/11/2009 Provid er: Diagnosis: Last Documented On 0 2:27PM By TRAVIS PACHECO LPN ; [facility] Flonase 50 MCG/ACT NA SUSP 11/07/2009 Provider: Jimenez ROBERTSON MD Diagnosis: 2 sprays each nostril QD Last Documented On 11/07/2009 10:47AM By ASTON ROBERTSON MD ; [facility] Accu-Chek Compact STRP 10/28/2009 Provider: RAMSEY ROBERTSON MD Diagnosis: Last Documented On 10/28/2009 9:23PM By ASTON ROBERTSON MD ; [facility] Lancets 28G MISC 10/28/2009 Provider: ASTON TAVAREZ MD Diagnosis: ACCU CHECK COMPACT PLUS Last Documented On 10/28/2009 9:24PM By ASTON ROBERTSON MD ; [facility] Detrol LA 4 MG OR CP24 06/17/2009 Provider: ROSALVA ROBERTSON MD Diagnosis: Last Documented On 06/17/2009 1:51PM By ASTON ROBERTSON MD ; [facility] Pantoprazole Sodium 40 MG OR TBEC 05/26/2009 Provide r: ASTON ROBERTSON MD Diagnosis: Last Documented On 05/26/2009 1:53PM By ASTON ROBERTSON MD ; [facility] Doxazosin Mesylate 8 MG OR TABS 05/26/2009 Provider: Diagnosis: Last Documented On 9 1:36PM By TRAVIS PACHECO LPN ; [facility] Past Medications on file Medrol 4 MG Oral Tablet Therapy Pack 04/27/2021 - 05/03/2021 Provider: ISABELLA DUNCAN Diagnosis: Sprain of ribs, initial encounter use as directed Last Documented On 04/27/2021 11:45AM By Isabella ANTONIO ; [facility] amLODIPine Besylate 10 MG OR TABS 05/06/2011 - 04/30/2012 Provider: SYLVIA MAYA PA-C Diagnosis: Last Documented On 1 4:02PM By SYLVIA MAYA PA-C ; [facility] hydroCHLOROthiazide 25 MG TABS 05/06/2011 - 04/30/2012 Provider: SYLVIA MAYA PA-C Diagnosis: 1AM - TAKE ONE TABLET BY MOUTH IN THE MORNING Last Documented On 1 4:03PM By SYLVIA MAYA PA-C ; [facility] glipiZIDE 5 MG OR TABS 05/06/2011 - 04/30/2012 Provide r: SYLVIA MAYA PA-C Diagnosis: Last Documented On 1 4:03PM By SYLVIA AMYA PA-C ; [facility] Metoprolol Tartrate 25 MG OR TABS 05/06/2011 - 04/30/2012 Provider: SYLVIA MAYA PA-C Diagnosis: BENIGN HYPERTENS ION TAKE ONE TABLET BY MOUTH TWICE DAILY Last Documented On 1 4:05PM By SYLVIA MAYA PA-C ; [facility] Metoprolol Tartrate 50 MG OR TABS 05/06/2011 - 04/30/2012 Provider: SYLVIA MAYA PA-C Diagnosis: BENIGN HYPERTENS ION Last Documented On 1 4:04PM By SYLVIA MAYA PA-C ; [facility] NexIUM 40 MG OR CPDR 05/06/2011 - 04/30/2012 Provider: SYLVIA MAYA PA-C Diagnosis: Last Documented On 1 4:04PM By SYLVIA MAYA PA-C ; [facility] Losartan Potassium 25 MG OR TABS 05/06/2011 - 04/30/2012 Provider: SYLVIA MAYA PA-C Diagnosis: 90 DAY SUPPLY GOING TO [place] Last Documented On 1 4:04PM By SYLVIA MAYA PA-C ; [facility] Zetia 10 MG OR TABS 05/06/2011 - 04/30/2012 Provider: SYLVIA MAYA PA-C Diagnosis: Last Documented On 1 4:03PM By SYLVIA MAYA PA-C ; [facility] metFORMIN HCl 1000 MG TABS 05/06/2011 - 04/30/2012 Pro vider: SYLVIA MAYA PA-C Diagnosis: Last Documented On 1 4:03PM By SYLVIA MAYA PA-C ; [facility] Venlafaxine HCl 75 MG OR TABS 05/06/2011 - 04/30/2012 Provider: SYLVIA MAYA PA-C Diagnosis: Last Documented On 1 4:03PM By SYLVIA MAYA PA-C ; [facility] Glucotrol XL 5 MG OR TB24 12/18/2010 - 12/13/2011 Prov ider: SYLVIA MAYA PA-C Diagnosis: Last Documented On 1 3:45PM By SYLVIA MAYA PA-C ; [facility] Lopressor 100 MG OR TABS 05/26/2009 - 06/25/2009 Provi valerio: Diagnosis: Last Documented On 9 1:33PM By TRAVIS PACHECO LPN ; [facility] Cipro 500 MG OR TABS 05/08/2009 - 05/18/2009 Provider: LUCRECIA LOVELL PA-C Diagnosis: 1 BID X 10 DAYS Last Documented On 05/08/2009 10:41AM By LUCRECIA LOVELL ; [facility] Lisinopril 10 MG OR TABS 03/18/2009 - 03/13/2010 Provi valerio: Diagnosis: Last Documented On 03/25/2009 11:24AM By SUSIE ZEPEDA ; [facility] Pindolol 5 MG OR TABS 01/06/2009 - 07/05/2009 Provider : Diagnosis: Last Documented On 03/25/2009 11:24AM By SUSIE ZEPEDA ; [facility] raNITIdine HCl 150 MG OR TABS 12/23/2008 - 12/18/2009 Provider: Diagnosis: Last Documented On 03/25/2009 11:24AM By SUSIE ZEPEDA ; [facility] Medications Administered Includes: Administered Medications from this [...] ctive Last Documented On 1 11:17AM ; [facility] Plavix Allergy 03/25/2009 Active Last Documented On 1 11:17AM ; [facility] Penicillins Allergy 03/25/2009 Active Last Documented On 1 11:17AM ; [facility] Encounters Encounter Provider Location Date Check-In Time Check-Out Time Diagnosis [Patient Encounter] SYLVIA MAYA PA-C 1 10:17AM 11:59PM Diabetes Mellitus Type 2 Insurance Includes: Active Insurance Policies Plan Name Member ID Group # Subscriber Relationship Effect kamar Dates 1 - [employer] MED[employer] ADVANTAGE [id number] CARLIN Ruelas Clinical Notes Includes: Clinical Notes from this encounter No Clinical Notes Recorded
--- OUTSIDE RECORDS SUMMARY | 2025-06-18 23:56 | XMS_ITS | Clinical Summary ---
Author Organization [facility] Address [address] [place] [address] Phone Care Team Providers Care Vitamin Manager Name Role Phone CARMEN FIGUEROA CORY Unavailable [phone] ASTON ROBERTSON MD Primary Care Provider Unavail able Reason for Visit and Chief Complaint The Chief Complaint is: follow up right knee replacement also had 2 heart attacks following surgeryhad 2 stent placement Sees training and documentation specialist in a couple weeks. having passing out when getting out of bed. has tried to sit on side of bed. seems to help some. Symptoms seem worse since METOPROLOL was increased. has nausea once in a while but when eats candy bar or sugar it sub sides ~ ~Denies any CP, SOB, N/V Problems Includes: Problems addressed during this encounter and other active Problems Current Visit Onset Date Resolved Date Provider Conditio n Status Chronic Diffuse Ischemic Heart Disease 03/25/2009 ASTON ROBERTSON MD Active Last Documented On 0 2:28PM ; [facility] Diabetes Mellitus Type 2 03/25/2009 ASTON TAVAREZ MD Active Last Documented On 0 2:28PM ; [facility] Hyperlipidemia 03/25/2009 ASTON ROBERTSON MD Act kamar Last Documented On 0 2:28PM ; [facility] Essential Hypertension Benign 03/25/2009 JODEE ROBERTSON MD Active Last Documented On 0 2:28PM ; [facility] Osteoarthritis 03/25/2009 ASTON ROBERTSON MD Act kamar Last Documented On 0 2:28PM ; [facility] Past Visits Onset Date Resolved Date Provider Condition Status Depression 05/26/2009 SYLVIA MAYA PA-C Act kamar Last Documented On 1 3:45PM ; [facility] 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 Jimenez ROBERTSON MD Active Last Documented On 0 2:28PM ; [facility] Benign Prostatic Hypertrophy 03/25/2009 ASTON ROBERTSON MD Active Last Documented On 0 2:28PM ; [facility] Plan of Treatment - ESSENTIAL HYPERTENSION BENIGN - Last Documented On 03/25/2011 10:45AM ; [facility] Metoprolol Tartrate 50 MG TABS, 1 BID, 30 days, 0 refills Metoprolol Tartrate 25 MG TABS, 1 BID, 30 days, 0 refills - Last Documented On 03/25/2011 10:45AM ; [facility] F/u with training and documentation specialist return is any sx arise . - Last Documented On 03/25/2011 10:45AM ; [facility] Assessments Includes: Assessments from this encounter Findings - Chronic diffuse ischemic heart disease - Last Documented On 03/25/2011 10:45AM ; [facility] - Benign essential hypertension - Last Documented On 03/25/2011 10:45AM ; [facility] - Hyperlipidemia - Last Documented On 03/25/2011 10:45AM ; [facility] - Type II diabetes mellitus - Last Documented On 03/25/2011 10:45AM ; [facility] - Osteoarthritis - Last Documented On 03/25/2011 10:45AM ; [facility] Pre-op clearence. - Last Documented On 03/25/2011 10:45AM ; [facility] Medical Equipment - Implanted Devices Includes: Current Devices No Medical Equipment Recorded Medications Includes: Medications discussed during this encounter and other current Medications New / Renewed during this visit MESHA KRUEGER PA-C on 03/25/2011 Metoprolol Tartrate 50 MG OR TABS Provider: MESHA KRUEGER PA-C 30 day supply: 60, 0 refills Diagnosis: BE NIGN HYPERTENSION Pharmacy: [facility] [facility] [place], [address] - Last Documented On 1 4:04PM By SYLVIA MAYA PA-C ; [facility] Metoprolol Tartrate 25 MG OR TABS Provider: MESHA KRUEGER PA-C 30 day supply: 60, 0 refills Diagnosis: BE NIGN HYPERTENSION Pharmacy: [facility] - [address] [facility] [place], [address] - Last Documented On 1 9:06AM By MESHA KRUEGER PA-C ; [facility] Current Medications (continue as prescribed) fentaNYL 12 MCG/HR TD PT72 03/25/2011 Provider: Diagnosis: Last Documented On 1 1:55PM By TRAVIS PACHECO LPN ; [facility] Effient 10 MG OR TABS 03/25/2011 Provider: Diagnosis: Last Documented On 1 1:54PM By TRAVIS PACHECO LPN ; [facility] NexIUM 40 MG OR CPDR 03/25/2011 Provider: Diagnosis: Last Documented On 1 1:53PM By TRAVIS PACHECO LPN ; [facility] glipiZIDE 5 MG OR TABS 03/25/2011 Provider: Diagnosis: Last Documented On 1 1:53PM By TRAVIS PACHECO LPN ; [facility] metFORMIN HCl 1000 MG TABS 03/25/2011 Provider: Diagnosis: Last Documented On 1 1:52PM By TRAVIS PACHECO LPN ; [facility] HYDROcodone-Acetaminophen 5-325 MG OR TABS 03/17/2011 Provider: ASTON ROBERTSON MD Diagnosis: 1-2 PO, Q4HR, PRN, Last Documented On 03/17/2011 1:23PM By ASTON ROBERTSON MD ; [facility] Zetia 10 MG OR TABS 12/18/2010 Provider: Diagnosis: Last Documented On 1 2:27PM By TRAVIS PACHECO LPN ; [facility] Crestor 20 MG OR TABS 05/14/2010 Provider: Diagnosis: Last Documented On 0 10:47AM By TRAVIS PACHECO LPN ; [facility] metFORMIN HCl 1000 MG TABS 05/14/2010 Provider: Jimenez ROBERTSON MD Diagnosis: HYPERLIPIDEMIA N EC/NOS Last Documented On 05/14/2010 11:14AM By ASTON ROBERTSON MD ; [facility] Lexapro 10 MG OR TABS 12/30/2009 Provider: JODEE ROBERTSON MD Diagnosis: Last Documented On 12/30/2009 4:14PM By ASTON ROBERTSON MD ; [facility] Lopressor 100 MG OR TABS 12/22/2009 Provider: ISABEL ROBERTSON MD Diagnosis: 2BID - TAKE TWO TABLETS BY MOUTH TWICE DAILY Last Documented On 12/22/2009 9:49AM By ASTON ROBERTSON MD ; [facility] amLODIPine Besylate 10 MG OR TABS 11/11/2009 Provide r: Diagnosis: Last Documented On 0 2:26PM By TRAVIS PACHECO LPN ; [facility] Metoprolol Tartrate 100 MG OR TABS 11/11/2009 Provid er: Diagnosis: Last Documented On 0 2:27PM By TRAVIS PACHECO LPN ; [facility] Flonase 50 MCG/ACT NA SUSP 11/07/2009 Provider: Jimenez ROBERTSON MD Diagnosis: 2 sprays each nostril QD Last Documented On 11/07/2009 10:47AM By ASTON ROBERTSON MD ; [facility] Accu-Chek Compact STRP 10/28/2009 Provider: RAMSEY ROBERTSON MD Diagnosis: Last Documented On 10/28/2009 9:23PM By ASTON ROBERTSON MD ; [facility] Lancets 28G MISC 10/28/2009 Provider: ASTON TAVAREZ MD Diagnosis: ACCU CHECK COMPACT PLUS Last Documented On 10/28/2009 9:24PM By ASTON ROBERTSON MD ; [facility] Detrol LA 4 MG OR CP24 06/17/2009 Provider: ROSALVA ROBERTSON MD Diagnosis: Last Documented On 06/17/2009 1:51PM By ASTON ROBERTSON MD ; [facility] Pantoprazole Sodium 40 MG OR TBEC 05/26/2009 Provide r: ASTON ROBERTSON MD Diagnosis: Last Documented On 05/26/2009 1:53PM By ASTON ROBERTSON MD ; [facility] Doxazosin Mesylate 8 MG OR TABS 05/26/2009 Provider: Diagnosis: Last Documented On 9 1:36PM By TRAVIS PACHECO LPN ; [facility] Past Medications on file Medrol 4 MG Oral Tablet Therapy Pack 04/27/2021 - 05/03/2021 Provider: ISABELLA BOLTON JD [employer] CONSULTANT-C Diagnosis: Sprain of ribs, initial encounter use as directed Last Documented On 04/27/2021 11:45AM By Isabella BEARP ; [facility] amLODIPine Besylate 10 MG OR TABS 05/06/2011 - 04/30/2012 Provider: SYLVIA MAYA PA-C Diagnosis: Last Documented On 1 4:02PM By SYLVIA MAYA PA-C ; [facility] hydroCHLOROthiazide 25 MG TABS 05/06/2011 - 04/30/2012 Provider: SYLVIA MAYA PA-C Diagnosis: 1AM - TAKE ONE TABLET BY MOUTH IN THE MORNING Last Documented On 1 4:03PM By SYLVIA MAYA PA-C ; [facility] glipiZIDE 5 MG OR TABS 05/06/2011 - 04/30/2012 Provide r: SYLVIA MAYA PA-C Diagnosis: Last Documented On 1 4:03PM By SYLVIA MAYA PA-C ; [facility] Metoprolol Tartrate 25 MG OR TABS 05/06/2011 - 04/30/2012 Provider: SYLVIA MAYA PA-C Diagnosis: BENIGN HYPERTENS ION TAKE ONE TABLET BY MOUTH TWICE DAILY Last Documented On 1 4:05PM By SYLVIA MAYA PA-C ; [facility] Metoprolol Tartrate 50 MG OR TABS 05/06/2011 - 04/30/2012 Provider: SYLVIA MAYA PA-C Diagnosis: BENIGN HYPERTENS ION Last Documented On 1 4:04PM By SYLVIA MAYA PA-C ; [facility] NexIUM 40 MG OR CPDR 05/06/2011 - 04/30/2012 Provider: SYLVIA MAYA PA-C Diagnosis: Last Documented On 1 4:04PM By SYLVIA MAYA PA-C ; [facility] Losartan Potassium 25 MG OR TABS 05/06/2011 - 04/30/2012 Provider: SYLVIA MAYA PA-C Diagnosis: 90 DAY SUPPLY GOING TO ME Last Documented On 1 4:04PM By SYLVIA MAYA PA-C ; [facility] Zetia 10 MG OR TABS 05/06/2011 - 04/30/2012 Provider: SYLVIA MAYA PA-C Diagnosis: Last Documented On 1 4:03PM By SYLVIA MAYA PA-C ; [facility] metFORMIN HCl 1000 MG TABS 05/06/2011 - 04/30/2012 Pro vider: SYLVIA MAYA PA-C Diagnosis: Last Documented On 1 4:03PM By SYLVIA MAYA PA-C ; [facility] Venlafaxine HCl 75 MG OR TABS 05/06/2011 - 04/30/2012 Provider: SYLVIA MAYA PA-C Diagnosis: Last Documented On 1 4:03PM By SYLVIA MAYA PA-C ; [facility] Glucotrol XL 5 MG OR TB24 12/18/2010 - 12/13/2011 Prov ider: SYLVIA MAYA PA-C Diagnosis: Last Documented On 1 3:45PM By SYLVIA MAYA PA-C ; [facility] Lopressor 100 MG OR TABS 05/26/2009 - 06/25/2009 Provi valerio: Diagnosis: Last Documented On 9 1:33PM By TRAVIS PACHECO LPN ; [facility] Cipro 500 MG OR TABS 05/08/2009 - 05/18/2009 Provider: LUCRECIA LOVELL PA-C Diagnosis: 1 BID X 10 DAYS Last Documented On 05/08/2009 10:41AM By LUCRECIA LOVELL ; [facility] Lisinopril 10 MG OR TABS 03/18/2009 - 03/13/2010 Provi valerio: Diagnosis: Last Documented On 03/25/2009 11:24AM By SUSIE ZEPEDA ; [facility] Pindolol 5 MG OR TABS 01/06/2009 - 07/05/2009 Provider : Diagnosis: Last Documented On 03/25/2009 11:24AM By SUSIE ZEPEDA ; [facility] raNITIdine HCl 150 MG OR TABS 12/23/2008 - 12/18/2009 Provider: Diagnosis: Last Documented On 03/25/2009 11:24AM By SUSIE ZEPEDA ; [facility] Medications Administered Includes: Administered Medications from this encounter No Administered Medications Recorded Vital Signs Includes: Vital Signs from this encounter Vital Name 03/25/2011 10:00A Blood Pressure Sitting R 120/70 BP Cuff Size Regular Pulse Rate-Sitting (bpm) 72 Pulse Rhythm Regular Respiration Rate (breaths/min) 20 Weight (lb) 272 Last Documented: On 03/25/2011 10:19A M ; [facility] Results Includes: Results discussed during this encounter No Results Recorded For Specified Dates History of Present Illness Includes: History of Present Illness from this encounter TESSIE GREENFIELD is a 70 year old male. Planned right total knee replacement with Dr. Ghotra on 03/01/11. Social History Description Last Updated Social history unchanged 03/25/2011 Last Documented On 1 10:45AM ; [facility] Non-smoker Quit 1993 03/25/2011 Last Documented On 1 10:45AM ; [facility] Quit smoking 03/25/2011 Last Documented On 1 10:45AM ; [facility] Smoking Status Unknown Procedures and Surgical History Includes: Procedures from this encounter Procedures Code Diagnosis Performing Provider Service L ocation Service Date continue current medication , cecrease toprol to 75mg BID Last Documented On 1 10:44AM ; [facility] Continue current treatment plan Last Documented On 1 10:41AM ; [facility] Medical History Includes: Medical History addressed during this encounter Description Last Updated No recent change in medical history 03/11 Last Documented On 1 10:45AM ; [facility] A home blood sugar check was performed c [employer] blood sugar BID 03/25/2011 Last Documented On 1 10:45AM ; [facility] Pt gets blood pressure checked at other facility 03/25/2011 Last Documented On 1 10:45AM ; [facility] Family History Includes: Family History addressed during this encounter Description Last Updated Family history unchanged 03/25/2011 Last Documented On 1 10:45AM ; [facility] Review of Systems Includes: Review of Systems from this encounter Encounter Background Information: Self monitoring blood glucose and compliant with self monitored glucose monitoring usually. Systemic: No fever, no chills, and no recent weight change. No night sweats and no edema. Head: No headache. Neck: No neck pain and no neck stiffness. Eyes: No vision problems. Otolaryngeal: No earache, no nasal discharge, and no sore throat. Cardiovascular: No chest pain or discomfort and no palpitations. Pulmonary: No dyspnea and not expressed as feeling short of breath. No cough and no wheezing. Gastrointestinal: Normal appetite, no heartburn, no nausea, no vomiting, no abdominal pain, and no melena. No diarrhea. Genitourinary: No hematuria and no increase in urinary frequency. No dysuria. Neurological: No dizziness. Psychological: No sleep disturbances. Skin: No pruritus. No skin lesions and no rash. Mental Status Includes: Mental Status from this encounter Description Oriented to time, place, and person Functional Status Includes: Functional Status from this encounter No Functional Status Recorded Physical Exam Includes: Physical Exam from this encounter Allergies Includes: Active Allergies Substance Type Reaction Onset Date Resolved Date Statu s Sulfa Antibiotics Allergy 03/25/2009 A ctive Last Documented On 1 11:17AM ; [facility] Plavix Allergy 03/25/2009 Active Last Documented On 1 11:17AM ; [facility] Penicillins Allergy 03/25/2009 Active Last Documented On 1 11:17AM ; [facility] Encounters Encounter Provider Location Date Check-In Time Check-Out Time Diagnosis GENERAL OFFICE VISIT [facility] 03/25/20 11 9:51AM 11:12AM Osteoarthritis, Hyperlipidemia, Essential Hypertension Benign,Diabetes Mellitus Type 2,Chronic Diffuse Ischemic Heart Disease,Assessm ent [use For S.o.a.p. Note Free Text] Insurance Includes: Active Insurance Policies Plan Name Member ID Group # Subscriber Relationship Effect kamar Dates 1 - [employer] [id number] CARLIN GREENFIELD Self Clinical Notes Includes: Clinical Notes from this encounter No Clinical Notes Recorded
[2025-06-19 00:01] LABS: Alanine Aminotransferase 20 U/L (6-50); Albumin Level 4.1 g/dL (3.5-5.1); Alkaline Phosphatase 98 U/L (38-126); Anion Gap 5 mmol/L (4-12); Aspartate Amino Transferase 28 U/L (17-59); Bilirubin,Total 0.8 mg/dL (0.2-1.3); Blood Urea Nitrogen 17 mg/dL (9-20); Calcium 9.4 mg/dL (8.4-10.2); Carbon Dioxide 33 mmol/L (22-30); Chloride 100 mmol/L (98-107); Estimated CRCL calculation 66 ml/min; Estimated Glomerular Filt Rate > 60; Glucose 173 mg/dL (65-110); Lipase 41 U/L (23-300); Potassium 3.6 mmol/L (3.4-5.0); Sodium 138 mmol/L (137-145); Total Protein 7.4 g/dL (6.3-8.2)
[2025-06-19 00:09] VITALS: BP 137/74; PULSE 84; RESP 19; O2SAT 96
[2025-06-19] MEDS: ONDANSETRON INJ 4 MG/2 ML VIAL IV PUSH (00:11)
--- NOTE | 2025-06-19 00:18 | ED.GENADULT ---
HPI - General Adult General Chief complaint: Abdominal Pain Stated complaint: Vomiting intermittent x weeks; RLQ pain Time Seen by Provider: 06/18/25 23:08 History of Present Illness HPI narrative: 84-year-old male present to the emergency department for evaluation for intermittent abdominal pain and nausea vomiting. Family states this is been ongoing since before . Patient did have multiple episodes of emesis today. Upon arrival emergency department patient denies any current abdominal pain. Patient is resting comfortably. Patient has had no episodes of emesis emergency department. Family is concerned for appendicitis and bowel obstruction. Related Data Allergies Allergy/AdvReac Type Severity Reaction Status Date / Time clopidogrel (From Plavix) Allergy Unknown Verified 05/25/24 22:36 lisinopril Allergy Unknown Verified 05/25/24 22:36 Penicillins Allergy Unknown Verified 05/25/24 22:36 Sulfa (Sulfonamide Allergy Unknown Verified 05/25/24 22:36 Antibiotics) Review of Systems Review of Systems: All systems reviewed & are unremarkable except as noted in HPI and below PMFSH Past Medical History Medical History Dementia Social History Social History Social History: Exam Narrative: APPEARANCE: Well appearing, no pain, no distress, well-nourished. HEAD: normocephalic, atraumatic. EYES: PERRLA/EOMI, conjunctivae clear. NOSE: Normal no drainage EARS:TMS clear with good light reflex. THROAT: Pharynx clear, no exudate. NECK: Supple. No adenopathy, no masses. RESPIRATORY: Airway patent, respirations nonlabored. Clear to auscultation bilaterally, no rales, rhonchi, wheezing. CARDIOVASCULAR: Regular rate and rhythm without murmurs rubs or gallops. ABDOMINAL: Soft, nontender, nondistended, normal bowel sounds MUSCULOSKELETAL: Moves all extremities. Strength/ROM intact, No edema, No calf tenderness. NEURO: Alert. Cranial nerves II through XII intact. Good gait. Good coordination SKIN: Warm, dry. Normal Color Course Vital Signs Vital signs: Vital Signs Temperature 97.5 F L 06/18/25 23:05 Pulse Rate 79 06/18/25 23:05 Respiratory Rate 21 H 06/18/25 23:05 Blood Pressure 168/75 H 06/18/25 23:05 Pulse Oximetry 97 06/18/25 23:05 Oxygen Delivery Room Air 06/18/25 23:05 Temperature 97.5 F L 06/18/25 23:05 Pulse Rate 87 06/19/25 03:31 Respiratory Rate 18 06/19/25 03:31 Blood Pressure 122/70 06/19/25 03:31 Pulse Oximetry 96 06/19/25 03:31 Oxygen Delivery Room Air 06/18/25 23:05 [facility] Narrative Medical decision making narrative: 84-year-old male presents emergency department for evaluation for upset stomach and nausea and vomiting over the course of the last month. Patient is currently afebrile with no leukocytosis and hemoglobin of 12.8. Patient has no acute abnormalities on his CMP. Lipase was negative. UA was positive for ketones but negative for infection. Patient was treated with 4 mg of Zofran for nausea control. Patient was treated with 1 L of lactated Ringer's due to orthostatic vitals. On re-evaluation patient states he does feel improved. CT scan showed no acute abnormality. Patient family are comfortable plan for discharge home. Suspect viral etiology. Patient was advised to take omeprazole for the next 14 days along with Zofran as needed for nausea control. Patient was advised to follow a clear liquid diet. Differential Diagnosis Differential Diagnosis: Colitis, diverticulitis, appendicitis, small-bowel obstruction Lab Data [facility] Lab Attestation statement: I personally reviewed the patient's lab results. 06/18/25 23:42 06/18/25 23:42 Labs: Lab Results 06/18/25 06/19/25 Range/Units 23:42 01:02 WBC 10.1 H (4.5-10.0) K/mm3 RBC 4.87 (4.6-6.20) M/mm3 Hgb 12.8 L (14.0-18.0) g/dL Hct 41.1 L (42.0-52.0) % MCV 84.4 (80-100) fl MCH 26.3 (26-34) pg MCHC 31.1 L (32-36) g/dl RDW 14.0 (11.5-14.5) % Plt Count 367 (150-375) k/mm3 MPV 8.7 (7.4-10.4) fl Immature Gran % (Auto) 0.3 (0-0.5) % Neut % (Auto) 74.3 H (45.5-73.1) % Lymph % (Auto) 15.8 L (18.3-44.2) % [place] % (Auto) 7.6 (2.6-8.5) % Eos % (Auto) 1.4 (0-4.4) % Baso % (Auto) 0.6 (0.2-1.2) % Lymph # (Auto) 1.59 (0.9-3.2) K/mm3 [place] # (Auto) 0.8 H (0.1-0.6) K/mm3 Eos # (Auto) 0.1 (0-0.3) K/mm3 Baso # (Auto) 0.1 (0.0-0.1) K/mm3 Abs Immat Gran (auto) 0.03 (0.00-0.031) K/mm3 Absolute Neuts (auto) 7.5 H (1.3-6.7) K/mm3 Absolute Nucleated RBC 0.000 (0.0-0.012) K/mm3 Nucleated RBC % 0.0 (0.0-0.2) % Sodium 138 (137-145) mmol/L Potassium 3.6 (3.4-5.0) mmol/L Chloride 100 (98-107) mmol/L Carbon Dioxide 33 H (22-30) mmol/L Anion Gap 5 (4-12) mmol/L BUN 17 (9-20) mg/dL Creatinine 0.83 (0.7-1.3) mg/dL Estim Creat Clear Calc 66 ml/min Estimated GFR > 60 (59 - ) Glucose 173 H (65-110) mg/dL Calcium 9.4 (8.4-10.2) mg/dL Total Bilirubin 0.8 (0.2-1.3) mg/dL AST 28 (17-59) U/L ALT 20 (6-50) U/L Alkaline Phosphatase 98 (38-126) U/L Total Protein 7.4 (6.3-8.2) g/dL Albumin 4.1 (3.5-5.1) g/dL Lipase 41 (23-300) U/L Urine Color Dark yellow (Yellow) Urine Appearance Clear (Clear) Urine pH 5.5 (5.0-9.0) Ur Specific [place] 1.029 (1.001-1.035) Urine Protein 1+ H (Negative) mg/dL Urine Glucose (UA) Trace H (Negative) mg/dL Urine Ketones Trace H (Negative) mg/dL Ur Blood (Man) Negative (Negative) Urine Nitrate Negative (Negative) Urine Bilirubin Negative (Negative) Urine Urobilinogen 1.0 (<2.0) mg/dL Add Ur Microanalysis Reviewed Leukocyte Esterase Rfl Negative (Negative) NAV/UL Urine RBC 0-2 (0-2) /hpf Urine WBC 0-5 (0-3) /hpf Ur Squamous Epith Cells None seen (Few) /hpf Urine Bacteria None seen /hpf Urine Casts 0-2 Imaging Data Radiologist's impression: Overnight read CT impression: No acute intra-abdominal abnormality. No bowel obstruction or inflammation. Normal appendix. No hydronephrosis or renal calculus. Hepatic steatosis. No biliary dilation or calcified gallstones. Bibasilar atelectasis and/or infiltrate. Discharge Plan Discharge Clinical Impression: Nausea & vomiting Patient Disposition: Home Condition: Stable Instructions: Antibiotic Form, Clear Liquid Diet (ED), Acute Nausea and Vomiting (DC) Additional Instructions: Zofran as needed for nausea control. Clear liquid diet for the next 1-3 days. Omeprazole as directed to help with stomach acid for the next 14 days. Have close follow-up with primary care physician. If you have any worsening symptoms please call or return to the emergency department. Patient Language: Divehi Prescriptions: New omeprazole 20 mg capsule,delayed release(DR/EC) 20 mg PO DAILY 14 Days Qty: 14 0RF ondansetron 4 mg tablet,disintegrating 4 mg PO Q8H PRN (Reason: nausea and vomiting) Qty: 14 0RF No Action clindamycin HCl 150 mg capsule 450 mg PO TID 10 Days Qty: 90 0RF Follow-up/Referrals: UNKNOWN,DOCTOR [Primary Care Provider] Stand Alone Forms: Work/School Release IP
[2025-06-19 00:38] VITALS: BP 144/78; PULSE 94; RESP 18; O2SAT 95
[2025-06-19 01:15] VITALS: PULSE 94; RESP 16; O2SAT 97
[2025-06-19 01:21] LABS: Add Urine Microscopic? YES; Appearance Urine Clear (Clear); Glucose Urine UA Trace mg/dL (Negative); Leukocyte Esterase Ur Negative LEU/UL (Negative); Need Manual Microscopic Reviewed; Nitrate Urine Negative (Negative); Non Pathogenic Casts 0-2; Specific Grav Ur 1.029 (1.001-1.035)
[2025-06-19] MEDS: LACTATED RINGERS 1,000 ML 999 ML IV CONT (02:33)
[2025-06-19 02:35] VITALS: BP 118/75; BP 148/70; PULSE 98
[2025-06-19 03:07] VITALS: BP 130/78; PULSE 90; RESP 18; O2SAT 98
[2025-06-19 03:31] VITALS: BP 122/70; PULSE 87; RESP 18; O2SAT 96
== END 2025-06-19 03:54 | disposition home or self-care (01) ==
PROVIDERS: Emergency Provider Emergency Medicine
DX: R11.2 Nausea with vomiting, unspecified (principal); F03.90 Unspecified dementia, unspecified severity, without behavioral disturbance, psychotic disturbance, mood disturbance, and anxiety
CPT/HCPCS: 36415; 74177; 80053; 81001; 83690; 85025; 96361; 96374; 99284; J2405; J7120; Q9967